=== PATIENT | female | born 1965 | race Caucasian/White ===

== ENCOUNTER 2016-04-01 12:04 | Emergency (ER) | payer OTHER ==
[~2016-04-01] VITALS: Ht 170.2 cm; Wt 63.6 kg
[~2016-04-01 12:04] MED LIST: AMOX TR-K CLV1 EAC4 PO; BACLOFEN10 MG PO; CYCLOBENZAPRINE10 MG PO; DILAUDID2 MG PO; ELAVIL10 MG PO; ESTRADIOL0.5 MG PO; FLEXERIL5 MG PO; GABAPENTIN600 MG PO; HYDROCHLOROTH12.5 M3 PO; INDOCIN25 MG PO; LIDOCAINE20 MG/1 M5 PO; LIDODERM 5% P1 PATCH TD; LISINOPRIL20 MG PO; LORTAB 5-325 M1 EACH PO; MORPHINE SULFAT30 M2 PO; NAPROSYN500 MG PO; NORCO 7.5/321 TABLET PO; OXYCODONE HCL15 MG PO; PERCOCET 10/1 TABLET PO; PERCOCET 5/31 TABLET PO; PREDNISONE10 MG PO; PREDNISONE50 MG PO; TOPROL XL100 MG PO; TRAZODONE HCL50 MG PO; ULTRAM50 MG PO; VALIUM5 MG PO; VALSARTAN-HCTZ1 EACH PO; VYVANSE40 MG PO; ZESTORETIC 20-1 EAC1 PO; ZOFRAN4 MG PO
[2016-04-01 15:03] LABS: CHLORIDE 84 mEq/L (99-109); POTASSIUM 2.5 mEq/L (3.7-5.4); SODIUM 122 mEq/L (136-147)
[2016-04-01 15:05] LABS: GLUCOSE 95 mg/dL (70-99)
[2016-04-01 15:06] LABS: ANION GAP 15 MEQ/L (2-14)
[2016-04-01 15:07] LABS: TOTAL BILIRUBIN 5.1 mg/dL (0.0-1.0)
[2016-04-01 15:08] LABS: SERUM ETHYL ALCOHOL < 10 mg/dL
[2016-04-01 15:09] LABS: ALKALINE PHOSPHATASE 128 IU/L (3-129); GFR ESTIMATE (CALCULATED) > 59 mL/min/
[2016-04-01 15:10] LABS: UREA NITROGEN (BUN) 7 mg/dL (9-23)
[2016-04-01 15:12] LABS: LIPASE 26 U/L (1.0-51.0)
[2016-04-01 15:13] LABS: INTER. NORMALIZED RATIO 1.1; PROTHROMBIN TIME 11.4 (9.2-11.2); PTT 25.1 (25-32)
[2016-04-01 15:18] LABS: QUANTITATIVE HCG < 4.0 MIU/ML
[2016-04-01 15:31] LABS: EOSINOPHIL (%) 0 % (0-5); HEMATOCRIT 36.3 % (36.0-46.0); IMMATURE GRANULOCYTE (%) 0.4 % (0.0-0.7); LYMPHOCYTE COUNT 1.6 K/uL (1.0-2.8); MCH 32.5 PG (29.0-34.0); MCHC 37.7 G/DL (30.0-36.0); MEAN PLAT.VOLUME 9.6 uM^3 (9.5-12.4); MONOCYTE (%) 6.2 % (3-12); MONOCYTE COUNT 0.5 K/uL (0-0.8); NEUTROPHIL (%) 72.7 % (45-76); NEUTROPHIL COUNT 5.7 K/uL (1.8-6.4); PLATELET COUNT 249 K/uL (156-360); RBC DIS.WIDTH-CV 17.8 % (11.8-14.6); RBC DIS.WIDTH-SD 55.2 % (39-53); RED BLOOD COUNT 4.22 M/uL (3.80-5.20); WHITE BLOOD COUNT 7.9 K/uL (4.1-10.2)
[2016-04-01] MEDS ORDERED: ONE-A-DAY ESSE1 EAC1 PO (16:57)
[2016-04-01] MEDS ORDERED: VENTOLIN HFA18 GM IH (16:57)
[2016-04-01] MEDS ORDERED: IBUPROFEN800 MG PO (16:58)
[2016-04-01] MEDS ORDERED: GABAPENTIN400 MG PO (16:59)
[2016-04-01] MEDS ORDERED: K-DUR20 MEQ PO (19:00)
[2016-04-01 19:19] VITALS: BP 143/101
== END 2016-04-01 19:20 | disposition left against medical advice (07) ==
LOC: EME 12:04
PROVIDERS: Emergency Medicine
DX: R53.1 Weakness (principal); E87.1 Hypo-osmolality and hyponatremia; E87.6 Hypokalemia; R00.0 Tachycardia, unspecified; R17 Unspecified jaundice; R63.4 Abnormal weight loss; R94.31 Abnormal electrocardiogram [ECG] [EKG]
CPT/HCPCS: 70450; 71010; 80053; 81003; 82140; 83605; 83690; 84702; 85025; 85610; 85730; 87040; 93005; G0480; J3475; J7030

== ENCOUNTER 2016-05-02 19:39 | Inpatient (IN) | payer OTHER ==
[~2016-05-02] VITALS: Ht 170.2 cm; Wt 66.5 kg
[~2016-05-02 19:39] MED LIST changes: +GABAPENTIN400 MG PO; +IBUPROFEN800 MG PO; +K-DUR20 MEQ PO; +ONE-A-DAY ESSE1 EAC1 PO; +VENTOLIN HFA18 GM IH
[2016-05-02 21:27] LABS: EOSINOPHIL (%) 0 % (0-5); HEMATOCRIT 33.8 % (36.0-46.0); IMMATURE GRANULOCYTE (%) 0.5 % (0.0-0.7); INSTRUMENT ABS NEUTROPHIL CT 3.1 K/uL; LYMPHOCYTE COUNT 0.7 K/uL (1.0-2.8); MCH 35.5 PG (29.0-34.0); MCHC 35.5 G/DL (30.0-36.0); MONOCYTE COUNT 0.2 K/uL (0-0.8); NEUTROPHIL (%) 76.2 % (45-76); NEUTROPHIL COUNT 3.1 K/uL (1.8-6.4); PLATELET COUNT 155 K/uL (156-360); RBC DIS.WIDTH-CV 19.3 % (11.8-14.6); RBC DIS.WIDTH-SD 68.6 % (39-53); RED BLOOD COUNT 3.38 M/uL (3.80-5.20)
[2016-05-02 21:37] LABS: CHLORIDE 85 mEq/L (99-109); INTER. NORMALIZED RATIO 1.4; POTASSIUM 3.5 mEq/L (3.7-5.4); PROTHROMBIN TIME 14.7 (9.2-11.2); PTT 30.5 (25-32); SODIUM 121 mEq/L (136-147)
[2016-05-02 21:40] LABS: GLUCOSE 48 mg/dL (70-99)
[2016-05-02 21:41] LABS: ANION GAP 17 MEQ/L (2-14)
[2016-05-02 21:43] LABS: ALKALINE PHOSPHATASE 163 IU/L (3-129); SERUM ETHYL ALCOHOL < 10 mg/dL
[2016-05-02 21:44] LABS: GFR ESTIMATE (CALCULATED) > 59 mL/min/
[2016-05-02 21:45] LABS: UREA NITROGEN (BUN) 6 mg/dL (9-23)
[2016-05-02 21:47] LABS: LIPASE 4 U/L (1.0-51.0); TROP-I INTERPRETATION NEGATIVE; TROPONIN-I < 0.01 ng/mL (0.0-0.30)
[2016-05-02 22:39] LABS: ADD MIUA? YES; BILIRUBIN SMALL; BLOOD NEGATIVE; GLUCOSE (STRIP) NEGATIVE; KETONES 20; LEUKOCYTES NEGATIVE; NITRITE NEGATIVE; PROTEIN (STRIP) NEGATIVE; SPECIFIC GRAVITY 1.019 (1.000-1.030)
[2016-05-02 22:46] LABS: BACTERIA 2+ /HPF; COLOR DK YELLOW ((YELLOW)); EPITHELIAL CELLS NONE SEEN /HPF; HYALINE CASTS 15-20 /LPF; MUCUS 2+ /LPF; RED BLOOD CELLS NONE SEEN /HPF (0-5); UCUL ADDED? NO; WHITE BLOOD CELLS NONE SEEN /HPF (0-5)
[2016-05-02 22:47] LABS: AMPHETAMINE NEGATIVE (500 ng/mL); BARBITURATES NEGATIVE (200 ng/mL); BENZODIAZEPINES NEGATIVE (150 ng/mL); COCAINE NEGATIVE (150 ng/mL); INTERNAL CONTROLS VALID? YES; METHADONE NEGATIVE (200 ng/mL); METHAMPHETAMINE NEGATIVE (500 ng/mL); OPIATES (MORPHINE) NEGATIVE (100 ng/mL); OXYCODONE PRESUMPTIVE POSITIVE (100 ng/mL); PHENCYCLIDINE NEGATIVE (25 ng/mL); PROPOXYPHENE NEGATIVE (300 ng/mL); THC CANNABINOIDS NEGATIVE (50 ng/mL); TRICYCLIC ANTIDEPRESSANTS NEGATIVE (300 ng/mL)
[2016-05-02] MEDS ORDERED: NEURONTIN100 MG PO (23:23)
[2016-05-02] MEDS ORDERED: POTASSIUM GLUCO90 MG PO (23:24)
[2016-05-02] MEDS ORDERED: MAGNESIUM OXID200 MG PO (23:25)
[2016-05-02] MEDS ORDERED: EX-LAX15 MG PO (23:26)
[2016-05-02] MEDS ORDERED: TYLENOL EXTRA500 MG PO (23:26)
[2016-05-02] MEDS ORDERED: ANALGESIC BALM28 GM TP (23:27)
[2016-05-02 23:40] LABS: POINT-OF-CARE METER ID UU13113702; POINT-OF-CARE USER ID 515033160
[2016-05-03] VITALS (14 sets, daily range): BP systolic 95–131; BP diastolic 53–94
[2016-05-03 00:24] LABS: MAGNESIUM 1.4 mg/dL (1.3-2.7)
[2016-05-03 01:52] LABS: POINT-OF-CARE METER ID UU13113702
[2016-05-03 04:43] LABS: POINT-OF-CARE METER ID UU13113698
[2016-05-03 06:43] LABS: POINT-OF-CARE METER ID UU13113698
[2016-05-03 06:50] LABS: BASE EXCESS -1.3 mEq/L (-3 to +3); BICARBONATE 20.1 mEq/L (22-26); CARBOXY HGB 0.7 % (0-5); METHEMOGLOBIN 1.4 % (0-1.5); PCO2 24 mm Hg (35-45); PO2 99 mm Hg (80-100); pH 7.53 (7.35-7.45)
[2016-05-03 06:51] LABS: COMMENTS - BLOOD GASES A+C+; FI02 21 %; SITE RR; TOTAL RESP RATE 16 resp/min
[2016-05-03 07:19] LABS: EOSINOPHIL (%) 0.3 % (0-5); HEMATOCRIT 30.9 % (36.0-46.0); IMMATURE GRANULOCYTE (%) 0.5 % (0.0-0.7); LYMPHOCYTE COUNT 1.6 K/uL (1.0-2.8); MCH 35.8 PG (29.0-34.0); MCHC 36.2 G/DL (30.0-36.0); MCV 98.7 FL (83-99); MEAN PLAT.VOLUME 9.5 uM^3 (9.5-12.4); MONOCYTE (%) 7.2 % (3-12); MONOCYTE COUNT 0.3 K/uL (0-0.8); PLATELET COUNT 132 K/uL (156-360); RBC DIS.WIDTH-SD 67.4 % (39-53); RED BLOOD COUNT 3.13 M/uL (3.80-5.20); WHITE BLOOD COUNT 3.9 K/uL (4.1-10.2)
[2016-05-03 07:23] LABS: ALKALINE PHOSPHATASE 186 IU/L (3-129); ANION GAP 17 MEQ/L (2-14); CHLORIDE 81 MEQ/L (99-109); GFR ESTIMATE (CALCULATED) > 59 mL/min/; GLUCOSE 90 mg/dL (70-99); POTASSIUM 3.3 MEQ/L (3.7-5.4); SAMPLE HEMOLYSIS CHECK 0; SAMPLE ICTERIC CHECK 1; SAMPLE LIPEMIA CHECK 0; TOTAL BILIRUBIN 4.9 MG/DL (0.0-1.0); UREA NITROGEN (BUN) 5 mg/dL (9-23)
[2016-05-03 07:24] LABS: SODIUM 119 MEQ/L (136-147)
[2016-05-03 07:28] LABS: INTER. NORMALIZED RATIO 1.6; PROTHROMBIN TIME 16.1 (9.2-11.2)
[2016-05-03 07:42] LABS: MAGNESIUM 1.7 mg/dl (1.3-2.7)
[2016-05-03 07:59] LABS: POINT-OF-CARE METER ID UU14174217
[2016-05-03 08:43] LABS: METH RESISTANT S AUREUS PCR POSITIVE (NEGATIVE)
[2016-05-03 08:44] LABS: PROBE CHECK PASS
[2016-05-03 09:03] LABS: AMYLASE 15 IU/L (1-118); LIPASE 4 U/L (1.0-51.0); URIC ACID 3.3 mg/dL (3.1-9.2)
[2016-05-03 10:02] LABS: ANION GAP 17 MEQ/L (2-14); CHLORIDE 83 MEQ/L (99-109); GFR ESTIMATE (CALCULATED) > 59 mL/min/; GLUCOSE 99 mg/dL (70-99); POTASSIUM 2.7 MEQ/L (3.7-5.4); SAMPLE HEMOLYSIS CHECK 0; SAMPLE ICTERIC CHECK 0; SAMPLE LIPEMIA CHECK 0; SODIUM 120 MEQ/L (136-147); UREA NITROGEN (BUN) 4 mg/dL (9-23)
[2016-05-03 10:04] LABS: ALKALINE PHOSPHATASE 127 IU/L (3-129); TOTAL BILIRUBIN 3.3 MG/DL (0.0-1.0)
[2016-05-03 10:33] LABS: POINT-OF-CARE METER ID UU14174217
[2016-05-03 10:54] LABS: HBSG INDEX 0.24
[2016-05-03 10:55] LABS: ANTI-HEPATITIS A VIRUS (IGM) Nonreactive; HAV INDEX 0.14
[2016-05-03 10:56] LABS: ANTI-HEPATITIS B CORE (IGM) Nonreactive; HBC IgM INDEX 0.06
[2016-05-03 12:12] LABS: POINT-OF-CARE METER ID UU14174217
[2016-05-03 13:32] LABS: ADD MIUA? NO; BILIRUBIN NEGATIVE; BLOOD NEGATIVE; COLOR AMBER ((YELLOW)); GLUCOSE (STRIP) NEGATIVE; KETONES 20; LEUKOCYTES NEGATIVE; NITRITE NEGATIVE; PROTEIN (STRIP) NEGATIVE; SPECIFIC GRAVITY 1.027 (1.000-1.030); UCUL ADDED? NO; UROBILINOGEN 0.2 MG/DL (0.2-1.0)
[2016-05-03 16:14] LABS: POINT-OF-CARE METER ID UU14174217
[2016-05-03 23:53] LABS: TOTAL BILIRUBIN 3.4 mg/dL (0.0-1.0)
[2016-05-03 23:54] LABS: ALKALINE PHOSPHATASE 136 IU/L (3-129)
[2016-05-04] VITALS (8 sets, daily range): BP systolic 84–129; BP diastolic 56–99
[2016-05-04 05:39] LABS: INTER. NORMALIZED RATIO 1.2; PROTHROMBIN TIME 12.6 (9.2-11.2)
[2016-05-04 05:50] LABS: EOSINOPHIL (%) 0 % (0-5); HEMATOCRIT 29.2 % (36.0-46.0); IMMATURE GRANULOCYTE (%) 0.4 % (0.0-0.7); INSTRUMENT ABS NEUTROPHIL CT 1.4 K/uL; LYMPHOCYTE COUNT 1.2 K/uL (1.0-2.8); MCH 35.6 PG (29.0-34.0); MCHC 34.6 G/DL (30.0-36.0); MEAN PLAT.VOLUME 9.6 uM^3 (9.5-12.4); MONOCYTE (%) 6.3 % (3-12); MONOCYTE COUNT 0.2 K/uL (0-0.8); NEUTROPHIL COUNT 1.4 K/uL (1.8-6.4); PLATELET COUNT 108 K/uL (156-360); RBC DIS.WIDTH-CV 19.3 % (11.8-14.6); RBC DIS.WIDTH-SD 70.7 % (39-53); RED BLOOD COUNT 2.84 M/uL (3.80-5.20)
[2016-05-04 05:51] LABS: MCV 102.8 FL (83-99); WHITE BLOOD COUNT 2.7 K/uL (4.1-10.2)
[2016-05-04 06:24] LABS: ALKALINE PHOSPHATASE 111 IU/L (3-129); ANION GAP 15 MEQ/L (2-14); GFR ESTIMATE (CALCULATED) > 59 mL/min/; GLUCOSE 92 mg/dL (70-99); POTASSIUM 2.7 MEQ/L (3.7-5.4); SAMPLE HEMOLYSIS CHECK 0; SAMPLE ICTERIC CHECK 0; SAMPLE LIPEMIA CHECK 0; TOTAL BILIRUBIN 2.9 MG/DL (0.0-1.0); UREA NITROGEN (BUN) 2 mg/dL (9-23)
[2016-05-04 06:27] LABS: CHLORIDE 94 MEQ/L (99-109); SODIUM 130 MEQ/L (136-147)
[2016-05-05 05:36] VITALS: BP 141/57
[2016-05-05 07:08] LABS: EOSINOPHIL (%) 0 % (0-5); HEMATOCRIT 27.4 % (36.0-46.0); IMMATURE GRANULOCYTE (%) 0.4 % (0.0-0.7); INSTRUMENT ABS NEUTROPHIL CT 1.2 K/uL; LYMPHOCYTE COUNT 0.9 K/uL (1.0-2.8); MCH 35.9 PG (29.0-34.0); MCHC 34.3 G/DL (30.0-36.0); MCV 104.6 FL (83-99); MEAN PLAT.VOLUME 9.4 uM^3 (9.5-12.4); MONOCYTE COUNT 0.2 K/uL (0-0.8); NEUTROPHIL (%) 51.6 % (45-76); NEUTROPHIL COUNT 1.2 K/uL (1.8-6.4); NRBC (%) 0.9 /100 WBC (0-0); PLATELET COUNT 79 K/uL (156-360); RBC DIS.WIDTH-CV 19.6 % (11.8-14.6); RBC DIS.WIDTH-SD 72.7 % (39-53); RED BLOOD COUNT 2.62 M/uL (3.80-5.20); WHITE BLOOD COUNT 2.3 K/uL (4.1-10.2)
[2016-05-05 07:34] LABS: ALKALINE PHOSPHATASE 105 IU/L (3-129); ANION GAP 10 MEQ/L (2-14); CHLORIDE 99 MEQ/L (99-109); GFR ESTIMATE (CALCULATED) > 59 mL/min/; GLUCOSE 90 mg/dL (70-99); POTASSIUM 2.6 MEQ/L (3.7-5.4); SAMPLE HEMOLYSIS CHECK 0; SAMPLE ICTERIC CHECK 1; SAMPLE LIPEMIA CHECK 0; SODIUM 134 MEQ/L (136-147); TOTAL BILIRUBIN 3.2 MG/DL (0.0-1.0); UREA NITROGEN (BUN) 2 mg/dL (9-23)
[2016-05-05 08:03] LABS: INTER. NORMALIZED RATIO 1.1; PROTHROMBIN TIME 11.2 (9.2-11.2)
[2016-05-05 08:28] VITALS: BP 136/88
[2016-05-05 11:44] VITALS: BP 110/60
[2016-05-05 16:48] VITALS: BP 130/90
[2016-05-05 21:15] VITALS: BP 126/82
[2016-05-06 01:07] VITALS: BP 124/92
[2016-05-06 05:14] VITALS: BP 132/76
[2016-05-06 07:06] LABS: EOSINOPHIL (%) 0.8 % (0-5); HEMATOCRIT 29.8 % (36.0-46.0); IMMATURE GRANULOCYTE (%) 0.8 % (0.0-0.7); INSTRUMENT ABS NEUTROPHIL CT 1.2 K/uL; LYMPHOCYTE COUNT 1.1 K/uL (1.0-2.8); MCH 36.2 PG (29.0-34.0); MCHC 33.6 G/DL (30.0-36.0); MEAN PLAT.VOLUME 9.4 uM^3 (9.5-12.4); MONOCYTE (%) 7.8 % (3-12); MONOCYTE COUNT 0.2 K/uL (0-0.8); NEUTROPHIL (%) 47.3 % (45-76); NEUTROPHIL COUNT 1.2 K/uL (1.8-6.4); PLATELET COUNT 84 K/uL (156-360); RBC DIS.WIDTH-CV 19.5 % (11.8-14.6); RBC DIS.WIDTH-SD 74.3 % (39-53); RED BLOOD COUNT 2.76 M/uL (3.80-5.20); WHITE BLOOD COUNT 2.5 K/uL (4.1-10.2)
[2016-05-06 07:35] LABS: ALKALINE PHOSPHATASE 118 IU/L (3-129); ANION GAP 7 MEQ/L (2-14); CHLORIDE 97 MEQ/L (99-109); GFR ESTIMATE (CALCULATED) > 59 mL/min/; GLUCOSE 83 mg/dL (70-99); SAMPLE HEMOLYSIS CHECK 1; SAMPLE ICTERIC CHECK 1; SAMPLE LIPEMIA CHECK 0; SODIUM 130 MEQ/L (136-147); TOTAL BILIRUBIN 3.3 MG/DL (0.0-1.0); UREA NITROGEN (BUN) 3 mg/dL (9-23)
[2016-05-06 07:38] LABS: POTASSIUM 3.8 MEQ/L (3.7-5.4)
[2016-05-06 08:00] VITALS: BP 160/90
[2016-05-06 13:08] VITALS: BP 156/84
[2016-05-06 16:33] VITALS: BP 160/110
[2016-05-06 21:23] VITALS: BP 107/75
[2016-05-07] VITALS (7 sets, daily range): BP systolic 98–130; BP diastolic 67–92
[2016-05-07 09:50] LABS: HEMATOCRIT 26.1 % (36.0-46.0); MCH 37.2 PG (29.0-34.0); MCHC 34.5 G/DL (30.0-36.0); MCV 107.9 FL (83-99); MEAN PLAT.VOLUME 9.6 uM^3 (9.5-12.4); PLATELET COUNT 83 K/uL (156-360); RBC DIS.WIDTH-CV 19.8 % (11.8-14.6); RED BLOOD COUNT 2.42 M/uL (3.80-5.20)
[2016-05-07 09:51] LABS: WHITE BLOOD COUNT 3.5 K/uL (4.1-10.2)
[2016-05-07 10:00] LABS: ANION GAP 7 MEQ/L (2-14); CHLORIDE 99 MEQ/L (99-109); GFR ESTIMATE (CALCULATED) > 59 mL/min/; GLUCOSE 77 mg/dL (70-99); POTASSIUM 3.7 MEQ/L (3.7-5.4); SAMPLE HEMOLYSIS CHECK 0; SAMPLE ICTERIC CHECK 0; SAMPLE LIPEMIA CHECK 0; SODIUM 128 MEQ/L (136-147); UREA NITROGEN (BUN) 3 mg/dL (9-23)
[2016-05-08 04:45] VITALS: BP 104/70
[2016-05-08 06:41] LABS: MCH 36.9 PG (29.0-34.0); MCHC 33.6 G/DL (30.0-36.0); MCV 109.8 FL (83-99); MEAN PLAT.VOLUME 9.4 uM^3 (9.5-12.4); PLATELET COUNT 98 K/uL (156-360); RBC DIS.WIDTH-SD 79.1 % (39-53); RED BLOOD COUNT 2.55 M/uL (3.80-5.20)
[2016-05-08 07:09] LABS: ANION GAP 5 MEQ/L (2-14); CHLORIDE 101 MEQ/L (99-109); GFR ESTIMATE (CALCULATED) > 59 mL/min/; GLUCOSE 77 mg/dL (70-99); SAMPLE HEMOLYSIS CHECK 0; SAMPLE ICTERIC CHECK 0; SAMPLE LIPEMIA CHECK 0; SODIUM 131 MEQ/L (136-147); UREA NITROGEN (BUN) 4 mg/dL (9-23)
[2016-05-08 07:52] LABS: ALKALINE PHOSPHATASE 89 IU/L (3-129); ANION GAP 5 MEQ/L (2-14); CHLORIDE 101 MEQ/L (99-109); FERRITIN 158 NG/ML (10-291); GFR ESTIMATE (CALCULATED) > 59 mL/min/; GLUCOSE 76 mg/dL (70-99); POTASSIUM 3.9 MEQ/L (3.7-5.4); SAMPLE HEMOLYSIS CHECK 0; SAMPLE ICTERIC CHECK 0; SAMPLE LIPEMIA CHECK 0; SODIUM 130 MEQ/L (136-147); UREA NITROGEN (BUN) 4 mg/dL (9-23)
[2016-05-08 07:53] LABS: TOTAL BILIRUBIN 2.3 MG/DL (0.0-1.0)
[2016-05-08 08:22] VITALS: BP 113/80
[2016-05-08 11:25] LABS: AHBS INDEX 0; HEPATITIS B SURFACE ANTIBODY Nonreactive
[2016-05-08 12:28] VITALS: BP 110/72
[2016-05-08 18:20] VITALS: BP 100/66
[2016-05-08 19:49] VITALS: BP 101/68
[2016-05-08 23:26] VITALS: BP 113/78
[2016-05-09 04:20] VITALS: BP 107/72
[2016-05-09 07:45] VITALS: BP 105/80
[2016-05-09 11:15] VITALS: BP 108/78
[2016-05-09 16:30] VITALS: BP 100/79
[2016-05-09 20:08] VITALS: BP 120/65
[2016-05-10] VITALS (7 sets, daily range): BP systolic 96–140; BP diastolic 55–90
[2016-05-10 06:19] LABS: ALKALINE PHOSPHATASE 83 IU/L (3-129); ANION GAP 5 MEQ/L (2-14); CHLORIDE 103 MEQ/L (99-109); GFR ESTIMATE (CALCULATED) > 59 mL/min/; GLUCOSE 85 mg/dL (70-99); POTASSIUM 3.3 MEQ/L (3.7-5.4); SAMPLE HEMOLYSIS CHECK 0; SAMPLE ICTERIC CHECK 0; SAMPLE LIPEMIA CHECK 0; SODIUM 132 MEQ/L (136-147); TOTAL BILIRUBIN 1.9 MG/DL (0.0-1.0); UREA NITROGEN (BUN) 4 mg/dL (9-23)
[2016-05-10 06:21] LABS: POINT-OF-CARE METER ID UU14188577
[2016-05-10 06:31] LABS: INTER. NORMALIZED RATIO 1.1; PROTHROMBIN TIME 11.7 (9.2-11.2)
[2016-05-10 06:59] LABS: HEMATOCRIT 28.2 % (36.0-46.0); MCH 36.2 PG (29.0-34.0); MCHC 32.6 G/DL (30.0-36.0); MEAN PLAT.VOLUME 9.5 uM^3 (9.5-12.4); PLATELET COUNT 94 K/uL (156-360); RBC DIS.WIDTH-CV 20.5 % (11.8-14.6); RBC DIS.WIDTH-SD 81.1 % (39-53); RED BLOOD COUNT 2.54 M/uL (3.80-5.20); WHITE BLOOD COUNT 2.6 K/uL (4.1-10.2)
[2016-05-10 07:36] LABS: ANISOCYTOSIS 2+; EOSINOPHIL (%) 0.8 % (0-5); IMMATURE GRANULOCYTE (%) 0.4 % (0.0-0.7); LYMPHOCYTE COUNT 1.1 K/uL (1.0-2.8); MACROCYTES 2+; MONOCYTE (%) 17.6 % (3-12); MONOCYTE COUNT 0.5 K/uL (0-0.8); NEUTROPHIL (%) 39.4 % (45-76); POLYCHROMASIA 1+
[2016-05-10 12:31] LABS: POINT-OF-CARE METER ID UU14149397
[2016-05-10 15:43] LABS: POINT-OF-CARE METER ID UU14149397
[2016-05-11 03:41] VITALS: BP 126/86
[2016-05-11 08:00] VITALS: BP 118/70
[2016-05-11 10:22] LABS: EOSINOPHIL (%) 0.6 % (0-5); HEMATOCRIT 31.1 % (36.0-46.0); IMMATURE GRANULOCYTE (%) 0.3 % (0.0-0.7); INSTRUMENT ABS NEUTROPHIL CT 1.6 K/uL; LYMPHOCYTE COUNT 1.2 K/uL (1.0-2.8); MCH 37.8 PG (29.0-34.0); MCHC 33.4 G/DL (30.0-36.0); MCV 113.1 FL (83-99); MEAN PLAT.VOLUME 10.1 uM^3 (9.5-12.4); MONOCYTE (%) 12.2 % (3-12); MONOCYTE COUNT 0.4 K/uL (0-0.8); NEUTROPHIL (%) 49.1 % (45-76); NEUTROPHIL COUNT 1.6 K/uL (1.8-6.4); PLATELET COUNT 121 K/uL (156-360); RBC DIS.WIDTH-CV 21.1 % (11.8-14.6); RBC DIS.WIDTH-SD 85.1 % (39-53); RED BLOOD COUNT 2.75 M/uL (3.80-5.20); WHITE BLOOD COUNT 3.3 K/uL (4.1-10.2)
[2016-05-11 10:40] LABS: ANION GAP 7 MEQ/L (2-14); CHLORIDE 104 MEQ/L (99-109); GFR ESTIMATE (CALCULATED) > 59 mL/min/; GLUCOSE 102 mg/dL (70-99); POTASSIUM 3.9 MEQ/L (3.7-5.4); SAMPLE HEMOLYSIS CHECK 0; SAMPLE ICTERIC CHECK 0; SAMPLE LIPEMIA CHECK 0; SODIUM 132 MEQ/L (136-147); UREA NITROGEN (BUN) 4 mg/dL (9-23)
[2016-05-11 10:44] LABS: ANISOCYTOSIS 2+; MACROCYTES 2+; POLYCHROMASIA 1+
[2016-05-11 11:20] VITALS: BP 112/58
[2016-05-11 16:36] VITALS: BP 90/40
[2016-05-11 20:04] VITALS: BP 95/60
[2016-05-11 23:56] VITALS: BP 114/80
[2016-05-12 03:59] VITALS: BP 97/61
[2016-05-12 05:42] LABS: ALKALINE PHOSPHATASE 76 IU/L (3-129); ANION GAP 7 MEQ/L (2-14); CHLORIDE 106 MEQ/L (99-109); GFR ESTIMATE (CALCULATED) > 59 mL/min/; GLUCOSE 74 mg/dL (70-99); POTASSIUM 3.4 MEQ/L (3.7-5.4); SAMPLE HEMOLYSIS CHECK 0; SAMPLE ICTERIC CHECK 0; SAMPLE LIPEMIA CHECK 0; SODIUM 134 MEQ/L (136-147); TOTAL BILIRUBIN 1.9 MG/DL (0.0-1.0); UREA NITROGEN (BUN) 4 mg/dL (9-23)
[2016-05-12 06:14] LABS: EOSINOPHIL (%) 0.7 % (0-5); HEMATOCRIT 25.3 % (36.0-46.0); IMMATURE GRANULOCYTE (%) 0.4 % (0.0-0.7); INSTRUMENT ABS NEUTROPHIL CT 0.9 K/uL; LYMPHOCYTE COUNT 1.3 K/uL (1.0-2.8); MCH 37.5 PG (29.0-34.0); MCHC 33.2 G/DL (30.0-36.0); MCV 112.9 FL (83-99); MONOCYTE (%) 17.8 % (3-12); MONOCYTE COUNT 0.5 K/uL (0-0.8); NEUTROPHIL COUNT 0.9 K/uL (1.8-6.4); RBC DIS.WIDTH-CV 20.8 % (11.8-14.6); RBC DIS.WIDTH-SD 82.9 % (39-53); RED BLOOD COUNT 2.24 M/uL (3.80-5.20); WHITE BLOOD COUNT 2.8 K/uL (4.1-10.2)
[2016-05-12 07:01] LABS: ABS NEUTROPHIL COUNT 1.4; ATYPICAL LYMPHOCYTE 1.8 %; BAND NEUTROPHILS 1.7 % (0-8.0); BASOPHILS 0.9 %; EOSINOPHIL ABS CT 0; MEAN PLAT.VOLUME 9.6 uM^3 (9.5-12.4); PLAT.SUFFICIENCY DECREASED; PLATELET COUNT 89 K/uL (156-360)
[2016-05-12 07:24] VITALS: BP 100/54
[2016-05-12 10:47] VITALS: BP 102/68
[2016-05-12 13:47] LABS: HEMATOCRIT 30.5 % (36.0-46.0); MCH 37.2 PG (29.0-34.0); MCHC 32.8 G/DL (30.0-36.0); MCV 113.4 FL (83-99); MEAN PLAT.VOLUME 10.2 uM^3 (9.5-12.4); PLATELET COUNT 101 K/uL (156-360); RBC DIS.WIDTH-CV 21.2 % (11.8-14.6); RBC DIS.WIDTH-SD 86.8 % (39-53)
[2016-05-12 13:48] LABS: RED BLOOD COUNT 2.69 M/uL (3.80-5.20); WHITE BLOOD COUNT 3.8 K/uL (4.1-10.2)
[2016-05-12 15:52] VITALS: BP 108/76
[2016-05-12 19:50] VITALS: BP 94/55
[2016-05-13 00:02] VITALS: BP 103/7
[2016-05-13 04:47] VITALS: BP 102/68
[2016-05-13 07:09] LABS: ALKALINE PHOSPHATASE 68 IU/L (3-129); ANION GAP 3 MEQ/L (2-14); CHLORIDE 107 MEQ/L (99-109); GFR ESTIMATE (CALCULATED) > 59 mL/min/; GLUCOSE 77 mg/dL (70-99); SAMPLE HEMOLYSIS CHECK 0; SAMPLE ICTERIC CHECK 0; SAMPLE LIPEMIA CHECK 0; SODIUM 133 MEQ/L (136-147); TOTAL BILIRUBIN 1.7 MG/DL (0.0-1.0); UREA NITROGEN (BUN) 6 mg/dL (9-23)
[2016-05-13 07:10] LABS: POTASSIUM 4.6 MEQ/L (3.7-5.4)
[2016-05-13 08:21] LABS: ANISOCYTOSIS 2+; EOSINOPHIL (%) 0.8 % (0-5); HEMATOCRIT 27.8 % (36.0-46.0); IMMATURE GRANULOCYTE (%) 0.4 % (0.0-0.7); INSTRUMENT ABS NEUTROPHIL CT 0.9 K/uL; LYMPHOCYTE COUNT 1.1 K/uL (1.0-2.8); MACROCYTES 2+; MCH 37.9 PG (29.0-34.0); MCHC 32.7 G/DL (30.0-36.0); MCV 115.8 FL (83-99); MONOCYTE (%) 16.2 % (3-12); MONOCYTE COUNT 0.4 K/uL (0-0.8); NEUTROPHIL (%) 35.6 % (45-76); NEUTROPHIL COUNT 0.9 K/uL (1.8-6.4); PLATELET COUNT 89 K/uL (156-360); RBC DIS.WIDTH-SD 88.9 % (39-53)
[2016-05-13 08:24] LABS: WHITE BLOOD COUNT 2.5 K/uL (4.1-10.2)
[2016-05-13 08:42] VITALS: BP 112/84
[2016-05-13] MEDS ORDERED: XIFAXAN550 MG PO (14:05)
[2016-05-13] MEDS ORDERED: BENADRYL25 MG PO (14:05)
[2016-05-13] MEDS ORDERED: Thiamine,Vitamin B1 PO (14:08)
[2016-05-13] MEDS ORDERED: FOLIC ACID1 MG PO (14:08)
[2016-05-13] MEDS ORDERED: FAMOTIDINE20 MG PO (14:08)
[2016-05-13] MEDS ORDERED: OXYCODONE HCL5 MG PO (14:10)
[2016-05-13 16:15] VITALS: BP 125/87
== END 2016-05-13 19:31 | DRG 917 ==
LOC: EME 19:39 → EDOF 22:57 → 3EAST 22:57 → 4EAST 22:57 → 4WEST 22:57 → EDOF 05-03 00:52 → 4EAST 05-03 02:16 → 4WEST 05-03 07:14 → 4EAST 05-04 17:48 → 3EAST 05-09 16:17
PROVIDERS: Emergency Medicine; Family Medicine; Hospitalist; Internal Medicine; Internal Medicine Critical Care Medicine; Internal Medicine Gastroenterology; Internal Medicine Nephrology; Physician Assistant; Physician Assistant Medical; Student in an Organized Health Care Education/Training Program
DX: T39.1X1A Poisoning by 4-Aminophenol derivatives, accidental (unintentional), initial encounter (principal); K72.00 Acute and subacute hepatic failure without coma; E87.1 Hypo-osmolality and hyponatremia; L89.313 Pressure ulcer of right buttock, stage 3; D61.818 Other pancytopenia; E87.2 Acidosis; R64 Cachexia; R17 Unspecified jaundice; D64.9 Anemia, unspecified; D68.9 Coagulation defect, unspecified; E46 Unspecified protein-calorie malnutrition; I47.1 Supraventricular tachycardia; D69.6 Thrombocytopenia, unspecified; E87.6 Hypokalemia; R94.5 Abnormal results of liver function studies; M54.9 Dorsalgia, unspecified; F17.200 Nicotine dependence, unspecified, uncomplicated; R26.9 Unspecified abnormalities of gait and mobility; G89.29 Other chronic pain; F10.21 Alcohol dependence, in remission; M25.551 Pain in right hip; M25.552 Pain in left hip; F07.81 Postconcussional syndrome; Z98.84 Bariatric surgery status; R51 Headache; R53.1 Weakness; D72.819 Decreased white blood cell count, unspecified; E83.42 Hypomagnesemia; K76.89 Other specified diseases of liver; E87.8 Other disorders of electrolyte and fluid balance, not elsewhere classified; K76.9 Liver disease, unspecified; M54.5 Low back pain; E83.39 Other disorders of phosphorus metabolism
CPT/HCPCS: 36600; 70450; 70551; 71010; 72131; 74177; 80048; 80048 91; 80053; 80076; 81003; 82140; 82150; 82378; 82570; 82607; 82728; 82746; 82803; 82948; 83605; 83690; 83735; 83930; 83935; 84100; 84132 91; 84133; 84156; 84300; 84484; 84550; 85025; 85027; 85610; 85730; 86038; 86705; 86706; 86708 90; 86709; 86803; 87040; 87340; 87641; 88305; 88342 TC; 93005; 97530 GP; 99202; 99281; 99285; G0480; J0132; J1644; J1815; J3010; J3411; J3475; J3480; J7042; J7050; J7060; J7070; J7120; P9045; S0028